=== PATIENT | female | born 1990 | race Caucasian/White ===

== ENCOUNTER 2021-08-12 10:48 | Emergency (ER) | payer SELFPAY ==
[~2021-08-12] VITALS: Ht 165.1 cm; Wt 51.3 kg
[2021-08-12] MEDS ORDERED: BENZONATATE200 MG PO (13:12)
== END 2021-08-12 13:42 | disposition home or self-care (01) ==
LOC: ER 10:57
DX: R05.9 Cough, unspecified (principal); Z20.822 Contact with and (suspected) exposure to COVID-19
CPT/HCPCS: 71046; 99283; U0002

== ENCOUNTER 2022-08-27 10:05 | Emergency (ER) | payer SELFPAY ==
[~2022-08-27] VITALS: Ht 165.1 cm; Wt 51.3 kg
[~2022-08-27 10:05] MED LIST: BENZONATATE200 MG PO
[2022-08-27 10:34] VITALS: O2SAT 100
[2022-08-27] MEDS ORDERED: LIDOCAINE 1% 10 ML MULTIDOSE VIAL IJ ONE (11:21)
[2022-08-27] MEDS ORDERED: BACTRIM DS TAB1 EACH PO (11:44)
[2022-08-27] MEDS ORDERED: CLEOCIN HCL150 MG PO (11:44)
[2022-08-27] MEDS ORDERED: TRIMETHOPRIM/SULFAMETHOXAZOLE 160-800 MG TAB PO ONE (11:45)
[2022-08-27] MEDS ORDERED: CLINDAMYCIN HCL 150 MG CAP PO SCH (12:00)
== END 2022-08-27 11:52 | disposition home or self-care (01) ==
LOC: ER 10:11
DX: L02.215 Cutaneous abscess of perineum (principal)
CPT/HCPCS: 99283

== ENCOUNTER 2024-03-03 08:42 | Emergency (ER) | payer SELFPAY ==
[~2024-03-03] VITALS: Ht 165.1 cm; Wt 54.4 kg
[~2024-03-03 08:42] MED LIST changes: +BACTRIM DS TAB1 EACH PO; +CLEOCIN HCL150 MG PO
[2024-03-03 09:17] VITALS: PULSE 76; RESP 14; TEMP 98.8; O2SAT 100
[2024-03-03] MEDS ORDERED: CLOTRIMAZOLE15 GM TOP (09:44)
== END 2024-03-03 09:55 | disposition home or self-care (01) ==
LOC: ER 09:20
DX: B35.4 Tinea corporis (principal)
CPT/HCPCS: 99282

== ENCOUNTER 2024-04-05 08:39 | Emergency (ER) | payer SELFPAY ==
[~2024-04-05] VITALS: Ht 165.1 cm; Wt 54.4 kg
[~2024-04-05 08:39] MED LIST changes: +CLOTRIMAZOLE15 GM TOP
[2024-04-05 08:50] VITALS: PULSE 94; RESP 18; TEMP 98
[2024-04-05] MEDS: BENZONATATE 100 MG CAP PO STA (10:05)
[2024-04-05] MEDS: IBUPROFEN 600 MG TAB PO STA (10:06)
[2024-04-05 10:16] LABS: CORONAVIRUS COVID-19 AG NEGATIVE (NEGATIVE); INFLUENZA A AG POSITIVE (NEGATIVE); INFLUENZA B AG NEGATIVE (NEGATIVE)
[2024-04-05] MEDS ORDERED: BENZONATATE100 MG PO (10:18)
[2024-04-05 10:53] VITALS: BP 118/74; PULSE 71; RESP 18; TEMP 98.9; O2SAT 98
== END 2024-04-05 11:01 | disposition home or self-care (01) ==
LOC: ER 09:22
DX: R05.9 Cough, unspecified (principal); J10.1 Influenza due to other identified influenza virus with other respiratory manifestations; Z11.52 Encounter for screening for COVID-19
CPT/HCPCS: 71046; 99283